=== PATIENT | female | born 1940 | race Caucasian/White ===

== ENCOUNTER 2017-08-15 17:22 | Inpatient (IN) | payer MEDICARE, BC ==
[~2017-08-15 17:22] MED LIST: HYDR-2768; LEVA500T33; TOPR25TA2
[2017-08-15 18:30] VITALS: BP 171/76; PULSE 94; RESP 18; TEMP 98; O2SAT 98
[2017-08-15] MEDS ORDERED: ALUMINUM/MAGNESIUM/SIMETH 30 ML CUP PO PRN (21:45)
[2017-08-15] MEDS ORDERED: diphenhydrAMINE HCL 50 MG/ML VIAL - HS PRN IM (21:45)
[2017-08-15] MEDS ORDERED: hydrOXYzine HCL 50 MG TAB PO PRN (21:45)
[2017-08-15] MEDS ORDERED: traZODone HCL 50 MG TAB PO PRN (21:45)
[2017-08-15] MEDS ORDERED: ACETAMINOPHEN 325 MG TAB PO PRN (21:45)
[2017-08-15] MEDS ORDERED: diphenhydrAMINE HCL 50 MG CAP - HS PRN PO (21:45)
[2017-08-15] MEDS ORDERED: MAGNESIUM HYDROXIDE SUSP 30 ML CUP PO PRN (21:45)
[2017-08-15] MEDS ORDERED: FLUMAZENIL 0.5 MG/5 ML VIAL IV PUSH PRN (22:30)
[2017-08-15] MEDS ORDERED: LORazepam 2 MG/ML VIAL IV PUSH PRN ×4 (22:30)
[2017-08-15] MEDS ORDERED: LORazepam 1 MG TAB PO PRN (22:30)
[2017-08-15] MEDS ORDERED: LORazepam 2 MG TAB PO PRN (22:30)
[2017-08-16] MEDS ORDERED: LEVOTHYROXINE SODIUM 25 MCG TAB PO SCH (06:00)
[2017-08-16 06:46] VITALS: BP 159/65; PULSE 78; RESP 18; TEMP 97.3; O2SAT 97
--- NOTE | 2017-08-16 08:53 | PD.CONS ---
[facility] Requested By Reason for Consult medical management Primary Care Physician Unknown Diagnoses: History of Present Illness patient is a 76 y/o female with history of neck cancer, hypothyroidism, who was admitted to the psych unit for possible drug overdose. she was initially admitted to the [facility] [place] because of possible drug overdose and hypernatremia. she says that she went to the dentist yesterday. on her way home she had a drink and when she got home she hand another drink and took some ( doesn't remember how much) ativan. hs says that she doesn't remember what happened afterwards. she says that she believes it was a combination of sedation / alcohol and ativan. she denies any suicidal ideation. she denies any chest pain, sob,dizziness , nausea or vomiting. Review of Systems Constitutional: DENIES: Fever, Weight loss, Chills, Night Sweats Eyes: DENIES: Blurred vision, Diplopia, Vision loss, Double Vision Ears, nose, mouth, throat: DENIES: Tinnitus, Vertigo, Throat pain, Epistaxis Respiratory: DENIES: Apneas, Cough, Snoring, Wheezing, Hemoptysis, Sputum production, Shortness of breath Cardiovascular: DENIES: Chest pain, Palpitations, Syncope, Dyspnea on Exertion , PND, Lower Extremity Edema, Orthopnea, Claudication Gastrointestinal: DENIES: Abdominal pain, Black stools, Bloody stools, Constipation, Diarrhea, Nausea, Vomiting, Difficulty Swallowing, Anorexia Genitourinary: DENIES: Urinary frequency, Urgency, Hematuria, Dysuria Musculoskeletal: DENIES: Joint pain, Muscle aches, Stiffness, Joint Swelling Integumentary: DENIES: Rash Neurologic: DENIES: Abnormal gait, Headache, Localized weakness, Paresthesias, Seizures, Speech Problems, Tremor, Poor Balance Psychiatric: DENIES: Anxiety, Confusion, Mood changes, Depression, Hallucinations, Agitation, Suicidal Ideation, Homicidal Ideation, Delusions Past Family Social History Allergies: Coded Allergies: No Known Allergies (Verified Allergy, Severe, SOME TYPE ANTIBIOTIC, 01/17/07 ) Uncoded Allergies: SOME ANTIBIOTIC (Allergy, Unknown, 01/17/07) Past Medical History neck cancer hypothyroidism osteoarthritis Past Surgical History partial hysterectomy Reported Medications to be verified. Active Ordered Medications Current Medications Hydroxyzine HCl (Atarax) 50 mg Q6H PRN PO ANXIETY; Start 08/15/17 at 21:45 Diphenhydramine HCl (Benadryl) 50 mg HS PRN PO INSOMNIA; Start 08/15/17 at 21: 45 Diphenhydramine HCl (Benadryl Inj) 50 mg HS PRN IM INSOMNIA; Start 08/15/17 at 21:45 Trazodone HCl (Desyrel) 50 mg HS PRN PO INSOMNIA; Start 08/15/17 at 21:45; Status Cancel Acetaminophen (Tylenol) 650 mg Q4H PRN PO Pain 1-5 or Temp >101F; Start at 21:45 Magnesium Hydroxide (Milk Of Magnesia Liq) 30 ml DAILY PRN PO CONSTIPATION; Start 08/15/17 at 21:45 Al Hydrox/Mg Hydrox/Simethicone (Mag-Al Plus Susp Liq) 30 ml Q6H PRN PO DYSPEPSIA; Start 08/15/17 at 21:45 Nicotine (Habitrol 21 Mg Patch.24 Hr) 1 patch DAILY T-DERMAL ; Start 08/16/17 at 09:00 Miscellaneous Information 1 HS T-DERMAL ; Start 08/16/17 at 21:00 Levothyroxine Sodium (Synthroid) 25 mcg DAILY@0600 PO Last administered on 08/16t 05:15; Start 08/16/17 at 06:00 Amlodipine Besylate (Norvasc) 10 mg DAILY PO ; Start 08/16/17 at 09:00 Lorazepam (Ativan) 1 mg Q4H PRN PO CIWA 8-10 Last administered on 08/16/17t 05: 40; Start 08/15/17 at 22:30 Lorazepam (Ativan Inj) 1 mg Q4H PRN IV PUSH CIWA 8-10; Start 08/15/17 at 22:30 Lorazepam (Ativan) 2 mg Q2H PRN PO CIWA 11-14; Start 08/15/17 at 22:30 Lorazepam (Ativan Inj) 2 mg Q2H PRN IV PUSH CIWA 11-14; Start 08/15/17 at 22: 30 Lorazepam (Ativan Inj) 2 mg Q1H PRN IV PUSH CIWA 15-20; Start 08/15/17 at 22: 30 Lorazepam (Ativan Inj) 2 mg Q15M PRN IV PUSH CIWA > 20; Start 08/15/17 at 22: 30 Flumazenil (Romazicon Inj) 0.2 mg Q1M PRN IV PUSH SEE LABEL COMMENTS; Start at 22:30 Family History not significant. Social History quit smoking years ago. has a drink daily. Physical Exam Vital Signs Vital Signs Date Time Temp Pulse Resp B/P (MAP) Pulse Ox O2 Delivery O2 Flow Rate FiO2 08/16/17 06:46 97.3 78 18 159/65 (96) 97 08/15/17 18:30 98.0 94 18 171/76 (107) 98 Physical Exam GENERAL: This is a well-nourished, well-developed patient, in no apparent distress. SKIN: No rashes, ecchymoses or lesions. Cool and dry. HEAD: Atraumatic. Normocephalic. No temporal or scalp tenderness. EYES: Pupils equal round and reactive. Extraocular motions intact. No scleral icterus. No injection or drainage. ENT: Nose without bleeding, purulent drainage or septal hematoma. Throat without erythema, tonsillar hypertrophy or exudate. Uvula midline. Airway patent. NECK: Trachea midline. No JVD or lymphadenopathy. Supple, nontender, no meningeal signs. CARDIOVASCULAR: Regular rate and rhythm without murmurs, gallops, or rubs. RESPIRATORY: Clear to auscultation. Breath sounds equal bilaterally. No wheezes , rales, or rhonchi. GASTROINTESTINAL: Abdomen soft, non-tender, nondistended. No hepato-splenomegaly , or palpable masses. No guarding. MUSCULOSKELETAL: Extremities without clubbing, cyanosis, or edema. No joint tenderness, effusion, or edema noted. No calf tenderness. Negative Homans sign bilaterally. NEUROLOGICAL: Awake and alert. Cranial nerves II through XII intact. Motor and sensory grossly within normal limits. Five out of 5 muscle strength in all muscle groups. Normal speech. Assessment and Plan Assessment and Plan A/P - questionable drug overdose- placed on Nugent-act- awaiting psych evaluation. -hypernatremia- has resolved. -hypothyroidism/ hypertension; home meds to be verified and continued as appropriate. -history of neck cancer- f/u as outpatient- thank you for the consult. Discussed Condition With the patient and RN. Pradeep Kevin MD Aug 16, 2017 08:53
[2017-08-16] MEDS ORDERED: NICOTINE 21 MG/24 HR PATCH T-DERMAL SCH (09:00)
[2017-08-16 10:27] VITALS: BP 166/70; PULSE 91
[2017-08-16 12:01] LABS: BICARBONATE 27.8 MEQ/L (21.0-32.0); BLOOD UREA NITROGEN 10 MG/DL (7-18); CHLORIDE 104 MEQ/L (98-107); CHOLESTEROL 258 MG/DL (120-200); CREATININE 1.06 MG/DL (0.50-1.00); GLOMERULAR FILTRATION RATE 50 ML/MIN (>89); GLUCOSE,RANDOM 107 MG/DL (74-106); SODIUM (NA) 141 MEQ/L (136-145)
[2017-08-16 12:03] LABS: CHOLESTEROL/ HDL RATIO 2.64 RATIO; HDL CHOLESTEROL 97.7 MG/DL (40.0-60.0); LDL CHOLESTEROL 142 MG/DL (0-99); TRIGLYCERIDES 90 MG/DL (42-150)
[2017-08-16] MEDS ORDERED: ACETAMINOPHEN 325 MG TAB PO PRN (12:30)
[2017-08-16] MEDS ORDERED: MAGNESIUM HYDROXIDE SUSP 30 ML CUP PO PRN (12:30)
[2017-08-16] MEDS ORDERED: ALUMINUM/MAGNESIUM/SIMETH 30 ML CUP PO PRN (12:30)
--- NOTE | 2017-08-16 12:38 | HHI.HP ---
Provisional Diagnosis Admission Date Aug 15, 2017 at 19:03 [place]. 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 Express and informed consent means consent voluntarily given in writing, by a competent person, after sufficient explanation and disclosure of the subject matter involved to enable the person to make a knowing and willful decision without any element of force, fraud, deceit, duress, or other form of constraint or coercion. This person is 18 years of age or older, is not now known to be incompetent to consent to treatment with a guardian advocate, and does not have a health care surrogate or proxy currently making medical treatment decisions. I have found this person to be one of the following: [xxx] Competent to provide express and informed consent, as defined above, for voluntary admission to this facility and is competent to provide express and informed consent for treatment. He/she has the consistent capacity to make well reasoned, willful, and knowing decisions concerning his or her medical or mental health treatment. The person fully and consistently understands the purpose of the admission for examination/placement and is fully capable of personally exercising all rights assured under [place] Incompetent to provide express and informed consent to voluntary admission, and this is incompetent to provide express and informed consent to treatment. The person must be transferred to involuntary status and a petition for a guardian advocate filed with the Circuit Court. [] Refusing to provide express and informed consent to voluntary admission but is competent to provide express and informed consent for treatment. The person must be discharged or transferred to involuntary status. Form shall be completed within 24 hours of a person's arrival at the receiving facility and filed in the clinical record of each person: 1. Admitted on a voluntary basis 2. Permitted to provide express and informed consent to his/her own treatment 3. Allowed to transfer from involuntary to voluntary status 4. Prior to permitting a person to consent to his or her own treatment after having been previously found incompetent to consent to treatment. History of Present Illness Capacity: Has Capacity Psych Chief Complaint: questionable overdose multiple lorazepam and alcohol use per Nugent act HPI Patient is 76-year-old white female comes here under Nugent act by the [place] [employer] dated 08/14/17 at 1820 p.m. the document review essentially states took 15+ lorazepam plus alcohol after arguing with her patient was initially seen and medically cleared a [facility]. They document 7 reviewed. There is no documentation of the urine toxicology or blood alcohol level being done. At the present time patient sitting quietly in her room on 2600 nurse Cammie present throughout session. Patient is alert oriented white female appearing younger than stated age fairly clean and neat. It appears she is a cancer survivor having that appears of and fairly radical neck surgery and radiation in the past. She states she has been prescribed Ativan for that over the past multiple years and is taken it sporadically and infrequently. Patient states she took one Ativan prior to going for some significant dental work. She does acknowledge that she and her of 60 years are regular use use of alcohol she describes 1-2 cocktails daily. After the dental visit they stopped for drink on the way home. Then patient states she had a few drinks while preparing dinner and before going to bed. Patient denies any prior detox or rehabilitation. Denies any legal or criminal issues related to drinking. Denies any other drug use. She denies any prior psychiatric contact hospitalizations a psychotropic medications. As mentioned she has been for 60+ years. He has a number of grandchildren. She does denies suicidality homicidality voices or visions denies any prior suicidality ideation intent or plan. At the present time patient does not meet Nugent act criteria I will lift Nugent act. Patient to be discharged to her , no Rx by me, follow-up PCP. Gave some strong advice about the dangers of mixing benzodiazepines and alcohol. Patient was not too receptive to any critical discussions related to her alcohol use Review of Systems Constitutional: DENIES: Diaphoretic episodes, Fatigue, Fever, Weight gain, Weight loss, Chills, Dizziness, Change in appetite, Night Sweats Endocrine: DENIES: Abnorml menstrual pattern, Heat/cold intolerance, Polydipsia , Polyuria, Polyphagia Eyes: DENIES: Blurred vision, Diplopia, Eye inflammation, Eye pain, Vision loss , Photosensitivity, Double Vision Ears, nose, mouth, throat: DENIES: Tinnitus, Hearing loss, Vertigo, Nasal discharge, Oral lesions, Throat pain, Hoarseness, Ear Pain, Running Nose, Epistaxis, Sinus Pain, Toothache, Odynophagia Respiratory: DENIES: Apneas, Cough, Snoring, Wheezing, Hemoptysis, Sputum production, Shortness of breath Cardiovascular: DENIES: Chest pain, Palpitations, Syncope, Dyspnea on Exertion , PND, Lower Extremity Edema, Orthopnea, Claudication Gastrointestinal: DENIES: Abdominal pain, Black stools, Bloody stools, Constipation, Diarrhea, Nausea, Vomiting, Difficulty Swallowing, Anorexia Genitourinary: DENIES: Abnormal vaginal bleeding, Dysmenorrhea, Dyspareunia, Sexual dysfunction, Urinary frequency, Urinary incontinence, Urgency, Hematuria , Dysuria, Nocturia, Vaginal discharge Musculoskeletal: DENIES: Joint pain, Muscle aches, Stiffness, Joint Swelling, Back pain, Neck pain Integumentary: DENIES: Abnormal pigmentation, Pruritus, Rash, Nail changes, Breast masses, Breast skin changes, Nipple discharge Hematologic/lymphatic: DENIES: Bruising, Lymphadenopathy Immunologic/allergic: DENIES: Eczema, Urticaria Neurologic: DENIES: Abnormal gait, Headache, Localized weakness, Paresthesias, Seizures, Speech Problems, Tremor, Poor Balance Psychiatric: DENIES: Anxiety, Confusion, Mood changes, Depression, Hallucinations, Agitation, Suicidal Ideation, Homicidal Ideation, Delusions Past Psych History Psychological trauma history Patient denies Violence risk - others (6 mos) Low Violence risk - self (6 mos) Low Substance Abuse History Drugs/Alcohol past 12 months Patient daily multiple drinks alcohol Past Family Social History Coded Allergies: No Known Allergies (Verified Allergy, Severe, SOME TYPE ANTIBIOTIC, 01/17/07 ) Uncoded Allergies: SOME ANTIBIOTIC (Allergy, Unknown, 01/17/07) Past Medical History Multiple complex history of cancer treatment and survival Reported Medications Metoprolol Succinate (Toprol Xl) 25 Mg Tabcr 01/17/07 Levofloxacin (Levaquin) 500 Mg Tab 01/17/07 Hydrochlorothiazide (Hctz) 25 Mg Tab 01/17/07 Current Medications Medications (Trade) Dose Ordered Sig/Primitivo Route Start Time Stop Time Status Last Admin (Atarax) 50 mg Q6H PRN PO 08/15/17 21:45 (Benadryl) 50 mg HS PRN PO 08/15/17 21:45 (Benadryl Inj) 50 mg HS PRN IM 08/15/17 21:45 (Tylenol) 650 mg Q4H PRN PO 08/15/17 21:45 (Milk Of Magnesia Liq) 30 ml DAILY PRN PO 08/15/17 21:45 (Mag-Al Plus Susp Liq) 30 ml Q6H PRN PO 08/15/17 21:45 (Habitrol 21 Mg Patch.24 Hr) 1 patch DAILY T-DERMAL 08/16/17 09:00 Miscellaneous Information 1 HS T-DERMAL 08/16/17 21:00 (Synthroid) 25 mcg DAILY@0600 PO 08/16/17 06:00 08/16/17 05:15 (Norvasc) 10 mg DAILY PO 08/16/17 09:00 08/16/17 09:00 (Ativan) 1 mg Q4H PRN PO 08/15/17 22:30 08/16/17 05:40 (Ativan Inj) 1 mg Q4H PRN IV PUSH 08/15/17 22:30 (Ativan) 2 mg Q2H PRN PO 08/15/17 22:30 (Ativan Inj) 2 mg Q2H PRN IV PUSH 08/15/17 22:30 (Ativan Inj) 2 mg Q1H PRN IV PUSH 08/15/17 22:30 (Ativan Inj) 2 mg Q15M PRN IV PUSH 08/15/17 22:30 (Romazicon Inj) 0.2 mg Q1M PRN IV PUSH 08/15/17 22:30 Family Psych History Patient denies Social History Patient lives with of 60 years Patient's Strengths (min. 2) Patient verbal labile axis health care Physical Exam Patient seen screen medically cleared at [facility] at the present time patient sitting quietly in the room with nurse Cammie patient is in no acute distress, patient no respiratory distress, no complaints of abdominal pain. Patient moving all 4 extremities without difficulty no abnormal motor movements noted Vital Signs Vital Signs Date Time Temp Pulse Resp B/P (MAP) Pulse Ox O2 Delivery O2 Flow Rate FiO2 08/16/17 10:27 91 166/70 (102) 08/16/17 06:46 97.3 18 97 Lab Results Test 08/16/17 10:00 Blood Urea Nitrogen 10 MG/DL Creatinine 1.06 MG/DL Random Glucose 107 MG/DL Calcium Level 9.0 MG/DL Sodium Level 141 MEQ/L Potassium Level 4.4 MEQ/L Chloride Level 104 MEQ/L Carbon Dioxide Level 27.8 MEQ/L Anion Gap 9 MEQ/L Estimat Glomerular Filtration Rate 50 ML/MIN Triglycerides Level 90 MG/DL Cholesterol Level 258 MG/DL LDL Cholesterol 142 MG/DL HDL Cholesterol 97.7 MG/DL Cholesterol/HDL Ratio 2.64 RATIO Mental Status Examination Appearance: Appropriate Consciousness: Alert Orientation: Person, Place, Date/Time Motor Activity: Normal gait Speech: Unremarkable Language: Adequate Fund of Knowledge: Adequate Attention and Concentration: Other (fair) Memory: Unremarkable Mood: Other (euthymic to mildly dysphoric) Affect: Other (slight decrease range of motion intensity) Thought Process & Associations: Intact Thought Content: Appropriate Hallucination Type: None Delusion Type: None Suicidal Ideation: No Suicidal Plan: No Suicidal Intention: No Homicidal Ideation: No Homicidal Plan: No Homicidal Intention: No Insight: Poor Judgment: Poor Assessment & Plan Problem List: (1) Adjustment disorder with mixed disturbance of emotions and conduct ICD Codes: F43.25 - Adjustment disorder with mixed disturbance of emotions and conduct Assessment & Plan Estimated LOS: days patient does not meet Nugent criteria will lift Nugent act. Patient to be discharged today to her , no Rx by me, follow-up with the PCP. Patient was counseled as to the dangers of mixing benzodiazepines and alcohol. Patient showed marked resistance to taking any type of counseling related to her alcohol use Discharge Planning See above Request HC Surrog/Guard Advoc?: No Ashish Mott MD Aug 16, 2017 12:38
--- NOTE | 2017-08-16 12:43 | HHI.DS ---
Psychiatry Discharge Summary Inpatient Psychiatric care?: Yes Advance Directive: No Reason Not Provided: none Mental Health AdvanceDirective: No Health Care Proxy: No Admission Admission Date Aug 15, 2017 at 19:03 Admission Diagnosis: (1) Adjustment disorder with mixed disturbance of emotions and conduct ICD Code: F43.25 - Adjustment disorder with mixed disturbance of emotions and conduct Brief History Patient is 76-year-old white female comes here under Nugent act by the [place] [employer] dated 08/14/17 at 1820 p.m. the document review essentially states took 15+ lorazepam plus alcohol after arguing with her patient was initially seen and medically cleared a [facility]. They document 7 reviewed. There is no documentation of the urine toxicology or blood alcohol level being done. At the present time patient sitting quietly in her room on 2600 nurse Cmamie present throughout session. Patient is alert oriented white female appearing younger than stated age fairly clean and neat. It appears she is a cancer survivor having that appears of and fairly radical neck surgery and radiation in the past. She states she has been prescribed Ativan for that over the past multiple years and is taken it sporadically and infrequently. Patient states she took one Ativan prior to going for some significant dental work. She does acknowledge that she and her of 60 years are regular use use of alcohol she describes 1-2 cocktails daily. After the dental visit they stopped for drink on the way home. Then patient states she had a few drinks while preparing dinner and before going to bed. Patient denies any prior detox or rehabilitation. Denies any legal or criminal issues related to drinking. Denies any other drug use. She denies any prior psychiatric contact hospitalizations a psychotropic medications. As mentioned she has been for 60+ years. He has a number of grandchildren. She does denies suicidality homicidality voices or visions denies any prior suicidality ideation intent or plan. At the present time patient does not meet Nugent act criteria I will lift Nugent act. Patient to be discharged to her , no Rx by me, follow-up PCP. Gave some strong advice about the dangers of mixing benzodiazepines and alcohol. Patient was not too receptive to any critical discussions related to her alcohol use Tobacco Use In Past 30 Days: No Tobacco Past 30 Days Alcohol Use: 4 or More Times Per Week Hospital Course Please see above note under brief history. Patient does not meet criteria for involuntary inpatient psychiatric hospitalization. I will lift the Nugent act. Patient to be discharged to her . No Rx by me. Follow-up PCP. Recommendation refer also to AA. Patient consuled as to the dangers of mixing benzodiazepines and alcohol Results Blood Pressure 166 / 70 Vital Signs Date Time Temp Pulse Resp B/P (MAP) Pulse Ox O2 Delivery O2 Flow Rate FiO2 08/16/17 10:27 91 166/70 (102) 08/16/17 06:46 97.3 18 97 Laboratory Tests Test 08/16/17 10:00 Creatinine 1.06 MG/DL (0.50-1.00) Random Glucose 107 MG/DL (74-106) Estimat Glomerular Filtration Rate 50 ML/MIN (>89) Cholesterol Level 258 MG/DL (120-200) LDL Cholesterol 142 MG/DL (0-99) HDL Cholesterol 97.7 MG/DL (40.0-60.0) Laboratory Results Test 08/16/17 10:00 Cholesterol Level 258 MG/DL (120-200) HDL Cholesterol 97.7 MG/DL (40.0-60.0) LDL Cholesterol 142 MG/DL (0-99) Triglycerides Level 90 MG/DL (42-150) Summary of Procedures None done Pending results at discharge: No Medications # of Antipsychotic meds at D/C: 0 Approp Antipsych med options 1 - Minimum of three failed multiple trials of monotherapy. 2 - Documented plan to taper to monotherapy due to previous use of multiple meds OR cross-taper in progress at D/C. 3 - Documentation of augmentation of Clozapine. 4 - Justification other than those listed in allowable values 1-3, document here : Discharge Discharge Date: Aug 16, 2017 Discharge Diagnosis: (1) Adjustment disorder with mixed disturbance of emotions and conduct Diagnosis: Principal ICD Code: F43.25 - Adjustment disorder with mixed disturbance of emotions and conduct Pt Condition on Discharge: Stable Discharge Disposition: Discharge Home Discharge Instructions Diet Instructions: As Tolerated, No Restrictions Activities you can perform: Regular-No Restrictions Scheduled Appointment: follow-up primary care, referred to AA Discharge Time > 30 minutes Mental Status Examination Appearance: Appropriate Consciousness: Alert Orientation: Person, Place, Date/Time Motor Activity: Normal gait Speech: Unremarkable Language: Adequate Fund of Knowledge: Adequate Attention and Concentration: Other (fair) Memory: Unremarkable Mood: Other (euthymic to mildly dysphoric) Affect: Other (slight decrease range of motion intensity) Thought Process & Associations: Intact Thought Content: Appropriate Hallucination Type: None Delusion Type: None Suicidal Ideation: No Suicidal Plan: No Suicidal Intention: No Homicidal Ideation: No Homicidal Plan: No Homicidal Intention: No Insight: Poor Judgment: Poor Discharge/Advance Care Plan Health Problems: (1) Adjustment disorder with mixed disturbance of emotions and conduct Goals to promote your health * To prevent worsening of your condition and complications * To maintain your health at the optimal level Directions to meet your goals Take your medications as prescribed Follow your dietary instruction Follow activity as directed Keep your appointments as scheduled Take your immunizations and boosters as scheduled If your symptoms worsen call your PCP, if no PCP go to Urgent Care Center or Emergency Room For 08/05 questions related to your inpatient stay or results of tests pending at discharge, please contact Dr. Ashish Mott at Smoking is Dangerous to Your Health. Avoid second hand smoking Ashish Mott MD Aug 16, 2017 12:43
[2017-08-16 16:42] LABS: HEMOGLOBIN A1C 5.9 % (4.3-6.0)
[2017-08-16] MEDS ORDERED: REMOVE OLD NICOTINE PATCH T-DERMAL SCH (21:00)
== END 2017-08-16 14:40 | disposition home or self-care (01) | DRG 882 ==
LOC: H260 19:03
PROVIDERS: ADMIT Psychiatry & Neurology Psychiatry; ATTEND Psychiatry & Neurology Psychiatry
DX: F43.25 Adjustment disorder with mixed disturbance of emotions and conduct (principal); I10 Essential (primary) hypertension; E03.9 Hypothyroidism, unspecified; Z85.89 Personal history of malignant neoplasm of other organs and systems; Z87.891 Personal history of nicotine dependence
CPT/HCPCS: 80048; 80061; 83036